=== PATIENT | female | born 1995 | race Caucasian/White ===

== ENCOUNTER 2022-03-23 20:07 | Inpatient (IN) | payer OTHER ==
[~2022-03-23] VITALS: Ht 172.7 cm; Wt 133.4 kg
[2022-03-23 21:27] LABS: HCT 33.7 % (37.0-47.0); HGB 11.8 g/dl (12.5-16.0); MCV 91.3 fL (78.0-100.0); MPV 11.7 fL (6.0-9.5); RBC 3.69 M/uL (4.20-5.40); RDW 13.9 % (11.5-14.0); WBC 9.7 K/uL (4.0-10.5)
[2022-03-23 21:27] LABS: BILIRUBIN NEGATIVE (NEGATIVE); BLOOD NEGATIVE Ery/uL (NEGATIVE); CLARITY CLEAR (CLEAR); COLOR YELLOW (YELLOW); GLUCOSE (U) NORMAL (NORMAL); LEUKOCYTES TRACE Leu/uL (NEGATIVE); NITRITE NEGATIVE (NEGATIVE); PROTEIN NEGATIVE (NEGATIVE); SPECIFIC GRAVITY 1.015 (1.001-1.030); UROBILINOGEN 0.2 mg/dL (0.2-1.0)
[2022-03-23 21:34] LABS: AMORPHOUS URATES CRYSTALS TRACE; BACTERIA 1+
[2022-03-24 23:55] LABS: BASOPHIL 0.2 % (0-2); EOSINOPHIL 0.1 % (0-5); HCT 31.5 % (37.0-47.0); HGB 10.7 g/dl (12.5-16.0); LYMPHOCYTE 5.9 % (15-48); MCH 31.7 pg (25.0-31.0); MCV 93.2 fL (78.0-100.0); MONOCYTE 5.1 % (0-12); MPV 11.7 fL (6.0-9.5); NEUTROPHIL 88.2 % (41-80); NRBC 0; PLT 182 K/uL (150-400); RBC 3.38 M/uL (4.20-5.40); RDW 14.1 % (11.5-14.0); WBC 22.2 K/uL (4.0-10.5)
[2022-03-25 00:04] LABS: INR 1.08 (0.9-1.2); PROTHROMBIN TIME 13.4 SECONDS (11.8-13.4); PTT 27.5 SECONDS (24.4-34.7)
[2022-03-25 06:40] LABS: HCT 33.7 % (37.0-47.0); HGB 11.5 g/dl (12.5-16.0); MCH 30.5 pg (25.0-31.0); MCHC 34.1 g/dL (32.0-36.0); MCV 89.4 fL (78.0-100.0); MPV 11.8 fL (6.0-9.5); RBC 3.77 M/uL (4.20-5.40); RDW 15.1 % (11.5-14.0); WBC 20.8 K/uL (4.0-10.5)
[2022-03-25 06:50] LABS: INR 1.09 (0.9-1.2); PROTHROMBIN TIME 13.5 SECONDS (11.8-13.4); PTT 27.6 SECONDS (24.4-34.7)
[2022-03-25 08:20] LABS: HGB 11.1 g/dl (12.5-16.0); MCH 30.7 pg (25.0-31.0); MCHC 34.7 g/dL (32.0-36.0); MCV 88.6 fL (78.0-100.0); MPV 11.3 fL (6.0-9.5); RBC 3.61 M/uL (4.20-5.40); RDW 15.3 % (11.5-14.0); WBC 20.6 K/uL (4.0-10.5)
[2022-03-25 08:32] LABS: INR 1.08 (0.9-1.2); PROTHROMBIN TIME 13.4 SECONDS (11.8-13.4); PTT 28.1 SECONDS (24.4-34.7)
[2022-03-25 12:20] LABS: HCT 31.2 % (37.0-47.0); HGB 10.6 g/dl (12.5-16.0); MCH 30.5 pg (25.0-31.0); MCV 89.9 fL (78.0-100.0); MPV 11.7 fL (6.0-9.5); RBC 3.47 M/uL (4.20-5.40); RDW 15.8 % (11.5-14.0); WBC 18.9 K/uL (4.0-10.5)
[2022-03-25 12:46] LABS: INR 1.1 (0.9-1.2); PROTHROMBIN TIME 13.6 SECONDS (11.8-13.4); PTT 29.3 SECONDS (24.4-34.7)
[2022-03-26 07:12] LABS: HCT 27.2 % (37.0-47.0); HGB 9.1 g/dl (12.5-16.0); MCH 30.2 pg (25.0-31.0); MCHC 33.5 g/dL (32.0-36.0); MCV 90.4 fL (78.0-100.0); MPV 11.1 fL (6.0-9.5); RBC 3.01 M/uL (4.20-5.40); RDW 16.2 % (11.5-14.0); WBC 11.8 K/uL (4.0-10.5)
[2022-03-26 07:23] LABS: INR 1.09 (0.9-1.2); PROTHROMBIN TIME 13.5 SECONDS (11.8-13.4); PTT 30.9 SECONDS (24.4-34.7)
== END 2022-03-26 17:05 | disposition home or self-care (01) | DRG 787 ==
LOC: FOB 20:07
PROVIDERS: ADMIT Obstetrics & Gynecology
PROC: 30233N1 Transfusion of Nonautologous Red Blood Cells into Peripheral Vein, Percutaneous Approach (ICD-10-PCS; 2022-03-24)
PROC: 10D00Z1 Extraction of Products of Conception, Low, Open Approach (ICD-10-PCS; principal; 2022-03-24 22:19)
PROC: 30233N1 Transfusion of Nonautologous Red Blood Cells into Peripheral Vein, Percutaneous Approach (ICD-10-PCS; 2022-03-25)
DX: O76 Abnormality in fetal heart rate and rhythm complicating labor and delivery (principal); O72.1 Other immediate postpartum hemorrhage; O99.12 Other diseases of the blood and blood-forming organs and certain disorders involving the immune mechanism complicating childbirth; D62 Acute posthemorrhagic anemia; Z37.0 Single live birth; Z3A.40 40 weeks gestation of pregnancy; O99.02 Anemia complicating childbirth; D69.6 Thrombocytopenia, unspecified; O16.4 Unspecified maternal hypertension, complicating childbirth; O99.214 Obesity complicating childbirth; O99.284 Endocrine, nutritional and metabolic diseases complicating childbirth; E05.90 Thyrotoxicosis, unspecified without thyrotoxic crisis or storm; Z86.16 Personal history of COVID-19
CPT/HCPCS: 36415; 81001; 85025; 85384; 85610; 85730; 86850; 86900; 86901; 86922; J0456; J0690; J1100; J1885; J2210; J2274; J2370; J2405; J2590; J2916; J3490; J7030; J7050; J7120; P9016